=== PATIENT | male | born 1995 | race Caucasian/White ===

== ENCOUNTER 2017-11-14 18:19 | Emergency (ER) | payer OTHER ==
[2017-11-14 18:32] VITALS: BMI 26.6
[2017-11-14] MEDS ORDERED: KETOROLAC TROMETHAMINE 60 MG/2 ML VIAL IM ONE (18:54)
[2017-11-14] MEDS ORDERED: KETOROLAC TROMETHAMINE 60 MG/2 ML VIAL ONE (18:56)
--- NOTE | 2017-11-14 19:04 | PDOC ---
History of Present Illness <Mariam Granados - Last Filed: 11/14/17 20:49> - History of Present Illness Initial Comments: 11/14/17 18:56 22 yo M with h/o L shoulder dislocation x 2, who p/w L shoulder pain s/p fall. Patient reports playing basketball and landing/falling backwards on outstretched hand prior to arrival. Patient reports acute onset L shoulder pain worse with movement. Denies head, neck ,back trauma, or LOC. Denies F/C, N/V, PEARSON, neck stiffness, CP, SOB, abdominal pain, diarrhea, constipation, urinary complaints, weakness, lightheadedness, sensory changes. PMHx: as noted above ROS: as noted above NKDA <Tommy Swann - Last Filed: 11/14/17 23:46> - General Chief Complaint: Shoulder Dislocation Stated Complaint: SHOULDER INJURY Time Seen by Provider: 11/14/17 18:37 Past History <Mariam Granados - Last Filed: 11/14/17 20:49> - Past Medical History COPD: No DVT: No Other medical history: multiple L shoudler dislocations - Immunization History Immunization Up to Date: Yes - Suicide/Smoking/Psychosocial Hx Smoking Status: No Smoking History: Never smoked Have you smoked in the past 12 months: No Number of Cigarettes Smoked Daily: 0 Information on smoking cessation initiated: No Hx Alcohol Use: No Drug/Substance Use Hx: No Substance Use Type: None <Tommy Swann - Last Filed: 11/14/17 23:46> - Past Medical History Allergies/Adverse Reactions: Allergies Allergy/AdvReac Type Severity Reaction Status Date / Time No Known Allergies Allergy Verified 09/25/15 09:02 Home Medications: Ambulatory Orders NK [No Known Home Medication] 11/14/17 Review of Systems - Review of Systems Comments:: 11/14/17 18:56 GENERAL/CONSTITUTIONAL: No fever or chills. No weakness. HEAD, EYES, EARS, NOSE AND THROAT: No change in vision. No ear pain or discharge. No sore throat. CARDIOVASCULAR: No chest pain or shortness of breath RESPIRATORY: No cough, wheezing, or hemoptysis. GASTROINTESTINAL: No nausea, vomiting, diarrhea or constipation. GENITOURINARY: No dysuria, frequency, or change in urination. MUSCULOSKELETAL: L shoulder pain. No joint or muscle swelling. No neck or back pain. SKIN: No rash NEUROLOGIC: No headache, vertigo, loss of consciousness, or change in strength/ sensation. ENDOCRINE: No increased thirst. No abnormal weight change HEMATOLOGIC/LYMPHATIC: No anemia, easy bleeding, or history of blood clots. ALLERGIC/IMMUNOLOGIC: No hives or skin allergy. <Tommy Swann - Last Filed: 11/14/17 23:46> *Physical Exam - Vital Signs Last Vital Signs Temp Pulse Resp BP Pulse Ox 98.2 F 98 H 20 122/88 98 11/14/17 18:23 11/14/17 18:23 11/14/17 18:23 11/14/17 18:23 11/14/17 18:23 <DarwinMariamh - Last Filed: 11/14/17 20:49> - Vital Signs Last Vital Signs Temp Pulse Resp BP Pulse Ox 98.2 F 98 H 20 122/88 98 11/14/17 18:23 11/14/17 18:23 11/14/17 18:23 11/14/17 18:23 11/14/17 18:23 - Physical Exam Comments: 11/14/17 18:56 GENERAL: Awake, alert, and fully oriented, in no acute distress HEAD: No signs of trauma, normocephalic, atraumatic EYES: PERRLA, EOMI, sclera anicteric, conjunctiva clear ENT: Auricles normal inspection, hearing grossly normal, nares patent, oropharynx clear without exudates. Moist mucosa NECK: Normal ROM, supple, no lymphadenopathy, JVD, or masses LUNGS: No distress, speaks full sentences, clear to auscultation bilaterally HEART: Regular rate and rhythm, normal S1 and S2, no murmurs, rubs or gallops, peripheral pulses normal and equal bilaterally. EXTREMITIES : Normal inspection, Normal range of motion, no edema. No clubbing or cyanosis. Left shoulder: Pain with active and passive ROM, particularly abduction, and external rotation. Patient holding arm in internally rotated and flexed positon. No obvious limb length discrepancy,or bony deformity. Palpable and symmetric 2 + Radial pulses. Absent radial head, or scaphoid ttp. NEUROLOGICAL: Cranial nerves II through XII grossly intact. Normal speech, normal gait, no focal sensorimotor deficits SKIN: Warm, Dry, normal turgor, no rashes or lesions noted. <Tommy Swann - Last Filed: 11/14/17 23:46> Procedures - Joint Reduction Left Joint Reduction Site: left: Shoulder Pre-Procedure NV Exam: normal Conscious Sedation: No (5) Anesthesia: Versed Amt. of medication administered: 4mg Procedure: Traction Counter Traction Post-Procedure NV Exam: normal Complications: No Post Joint Reduction Film: joint reduced Splint: Yes Immobilized: Yes <Tommy Swann - Last Filed: 11/14/17 23:46> ED Treatment Course - Medications Given in the ED: ED Medications Discontinued Medications Generic Name Dose Route Start Last Admin Trade Name Freq PRN Reason Stop Dose Admin Ketorolac Tromethamine 60 mg 11/14/17 18:54 11/14/17 19:05 Toradol Injection - IM 11/14/17 18:55 60 mg ONCE ONE Administration <Mariam Granados - Last Filed: 11/14/17 20:49> - RADIOLOGY Radiology Studies Ordered: Category Date Time Status UPPER EXTREMITY CT W/O CONTR [CT] Stat CT Scan 11/14/17 18:53 Ordered SHOULDER-LEFT [RAD] Stat Radiology 11/14/17 18:40 Ordered <Tommy Swann - Last Filed: 11/14/17 23:46> Medical Decision Making - Medical Decision Making 11/14/17 19:04 22 yo M with h/o L shoulder dislocation x 2, who p/w L shoulder pain s/p fall. VSS, AF. BL UE neurovasculalry intact. Mechanism of injury involves fall onto outstretched hand or FOOSH injury. Absent evidence of scaphoid ttp/snuff box injury colles fracture, or scaphoid lunate injury. No evidence of laceration. Will obtain basic radiograph to r/o and pain control. ED Course 60 mg IM toradol. L SHOULDER RAD 11/14/17 22:[address] with post dislocation. Shoulder reduction performed at bedside with 100 mg fentanyl and 50 mg Versed with no complications. Malampati score 1. Patient pain improved. Sling applied to L shoulder. Patient stable for d/c with return precautions. <Tommy Swann - Last Filed: 11/14/17 23:46> *DC/Admit/Observation/Transfer <Mariam Granados - Last Filed: 11/14/17 20:49> <Tommy Swann - Last Filed: 11/14/17 23:46> Diagnosis at time of Disposition: Shoulder dislocation Qualifiers: Encounter type: initial encounter Laterality: left Qualified Code(s): S43.005A - Unspecified dislocation of left shoulder joint, initial encounter - Discharge Dispostion Disposition: HOME Condition at time of disposition: Stable
--- NOTE | 2017-11-14 20:50 | PDOC ---
Attending Attestation - Resident Resident Name: Rodger Swannson - ED Attending Attestation I have performed the following: I have examined & evaluated the patient, The case was reviewed & discussed with the resident, I agree w/resident's findings & plan, Exceptions are as noted - HPI HPI: 11/14/17 20:49 22 yo male p/w L shoulder pain s/p playing basketball - Physicial Exam PE: 11/14/17 20:50 slender 22 yo male p/w left shoulder pain head ncat neck no cervical vertebral tenderness lungs cta b/l cvs [id number] abd flat ,nontender ext there is no obvious deformity of the left shoulder but he has limited range of motion due to pain, good ulnar and radial pulses, sensation is intact neuro axox3,ambulatory skin warm and dry,no erythema - Medical Decision Making 11/14/17 22:55 ct scan of left shoulder revealed posterior dislocation/chronic reverse [place] Sacks deformity SEDATION and REDUCTION of POSTERIOR SHOULDER DISLOCATION /post reduction film obtained 11/15/17 00:18 successful reduction plan-pt to follow up with ortho . This is the 3rd time his shoulder has dislocated
[2017-11-14] MEDS ORDERED: MIDAZOLAM HCL 5 MG/1 ML Single Dose Vial IVPUSH STA ×2 (22:05→22:32)
[2017-11-14] MEDS ORDERED: MIDAZOLAM HCL 2 MG/2 ML SINGLE DOSE VIAL ONE (22:09)
[2017-11-15 00:33] VITALS: BP 111/78; PULSE 70; TEMP 98.4
== END 2017-11-15 00:45 | disposition home or self-care (01) ==
LOC: JER 18:19 → JERBED 21:23 → UNDOADMIN 21:23 → JER 11-15 00:45
PROC: 0RSKXZZ Reposition Left Shoulder Joint, External Approach (ICD-10-PCS; principal; 2017-11-14)
DX: M24.412 Recurrent dislocation, left shoulder (principal); W18.39XA Other fall on same level, initial encounter; Y93.67 Activity, basketball; Y92.310 Basketball court as the place of occurrence of the external cause; Y99.8 Other external cause status
CPT/HCPCS: 23650; 73030-TC-LT-FY; 73200-TC-RT; 99282-25

== ENCOUNTER 2018-09-17 11:05 | Emergency (ER) | payer OTHER ==
[2018-09-17 11:13] VITALS: BP 128/79; PULSE 110; TEMP 98.9; BMI 23.3
[2018-09-17] MEDS ORDERED: SODIUM CHLORIDE 1,000 ML IV STA (11:25)
[2018-09-17] MEDS ORDERED: ONDANSETRON 4 MG/2 ML VIAL IVPB ONE (11:25)
--- NOTE | 2018-09-17 11:28 | PDOC ---
History of Present Illness - General Chief Complaint: Nausea/Vomiting Stated Complaint: VOMMITING Time Seen by Provider: 09/17/18 11:06 History Source: Patient, Family Exam Limitations: No Limitations - History of Present Illness Initial Comments: 09/17/18 11:25 CHIEF COMPLAINT: Nausea and vomiting since 7 AM today HISTORY OF PRESENT ILLNESS: This is a healthy 23-year-old man who presents complaining of diffuse abdominal discomfort with nausea and vomiting since 7 AM. No blood. Patient states he awoke this morning and felt some nausea. He went in the bathroom and vomited. He also had some mild watery diarrhea. He has bandlike pain across the lower abdomen that waxes and wanes, almost goes away but not completely. Currently the pain is mild but he continues to feel nausea. He states he ate [employer] yesterday, nothing that could've been spoiled. He denies prior abdominal surgery. He states he once came to the ER for similar symptoms, but that was 3 or 4 years ago. REVIEW OF SYSTEMS: GENERAL/CONSTITUTIONAL: No fever or chills. No weakness. No weight change. HEAD, EYES, EARS, NOSE AND THROAT: No change in vision. No ear pain or discharge. No sore throat. CARDIOVASCULAR: No chest pain or shortness of breath. RESPIRATORY: No cough, wheezing, or hemoptysis. GASTROINTESTINAL: Positive nausea and vomiting. Positive diarrhea. See history of present illness. No prior abdominal surgery. GENITOURINARY: No dysuria, frequency, or change in urination. MUSCULOSKELETAL: No joint or muscle swelling or pain. No neck or back pain. SKIN AND BREASTS: No rash or easy bruising. NEUROLOGIC: No headache, vertigo, loss of consciousness, or loss of sensation. PSYCHIATRIC: No depression or anxiety. ENDOCRINE: No increased thirst. No abnormal weight change. HEMATOLOGIC/LYMPHATIC: No anemia, easy bleeding, or history of blood clots. ALLERGIC/IMMUNOLOGIC: No hives or skin allergy. No latex allergy. Past History - Past Medical History Allergies/Adverse Reactions: Allergies Allergy/AdvReac Type Severity Reaction Status Date / Time No Known Allergies Allergy Verified 09/17/18 11:06 Home Medications: Ambulatory Orders NK [No Known Home Medication] 11/14/17 Asthma: No COPD: No DVT: No Diabetes: No HTN: No - Immunization History Immunization Up to Date: Yes - Suicide/Smoking/Psychosocial Hx Smoking Status: No Smoking History: Current every day smoker Have you smoked in the past 12 months: Yes Number of Cigarettes Smoked Daily: 0 Information on smoking cessation initiated: Yes Hx Alcohol Use: No Drug/Substance Use Hx: No Substance Use Type: None *Physical Exam - Vital Signs Last Vital Signs Temp Pulse Resp BP Pulse Ox 98.9 F 110 H 20 128/79 100 09/17/18 11:06 09/17/18 11:06 09/17/18 11:06 09/17/18 11:06 09/17/18 11:06 - Physical Exam Comments: 09/17/18 11:28 GENERAL: The patient is awake, alert, and fully oriented, in no acute distress. HEAD: Normal with no signs of trauma. EYES: Pupils equal, round and reactive to light, extraocular movements intact, sclera anicteric, conjunctiva clear. ENT: Ears normal, nares patent, oropharynx clear without exudates. Moist mucous membranes. NECK: Normal range of motion, supple without lymphadenopathy, JVD, or masses. LUNGS: Breath sounds equal, clear to auscultation bilaterally. No wheezes, and no crackles. HEART: Regular rate and rhythm, normal S1 and S2 without murmur, rub or gallop. ABDOMEN: No distention. Soft, nontender, normoactive bowel sounds. No Campbell' s sign. No McBurney's tenderness. No guarding, no rebound. No masses. BACK: No CVA tenderness. EXTREMITIES: Normal range of motion, no edema. No clubbing or cyanosis. No cords, erythema, or tenderness. NEUROLOGICAL: Cranial nerves II through XII grossly intact. Normal speech, normal gait. PSYCH: Normal mood, normal affect. SKIN: Warm, Dry, normal turgor, no rashes or lesions noted. ED Treatment Course - LABORATORY CBC & Chemistry Diagram: 09/17/18 12:01 09/17/18 12:01 Medical Decision Making - Medical Decision Making 09/17/18 15:05 Patient is a 23-year-old man with onset today of nausea and vomiting and some diarrhea. On examination he has a generalized sensation of abdominal discomfort , but there is no focal tenderness in any area. There is no rebound or guarding. Initial impression is probable gastroenteritis, however early appendicitis is also in the differential. Laboratory workup performed revealing significant leukocytosis with increased neutrophils, suggesting more bacterial than viral infection. Based upon this finding, CT scan was performed to rule out diverticulitis or appendicitis. CT scan is notable for diverticulosis without diverticulitis. The appendix is normal. There is diffuse fluid and minimal bowel wall thickening throughout, consistent with enterocolitis. Impression: Enterocolitis, bacterial versus viral, patient will be treated with a course of Augmentin for the possibility of bacterial enterocolitis or mild, early diverticulitis. He is tolerating oral fluids. 09/17/18 15:29 Repeat abdominal examination is benign. Patient tolerated oral antibiotics and fluids without difficulty. He is stable for discharge home. *DC/Admit/Observation/Transfer Diagnosis at time of Disposition: Enterocolitis - Discharge Dispostion Disposition: HOME Condition at time of disposition: Stable Decision to Admit order: No - Referrals - Patient Instructions Printed Discharge Instructions: DI for Vomiting -- Adult Additional Instructions: Today you were evaluated for vomiting and diarrhea. The CT scan shows some inflammation of the small and large intestine. You are being treated with Augmentin antibiotic twice a day to help resolve the infection. Be sure to drink plenty of fluids. Follow-up with your primary care physician. If you have a high fever, worsening abdominal pain, or any other severe or worsening symptoms, return to the emergency department immediately. - Post Discharge Activity
[2018-09-17] MEDS ORDERED: ONDANSETRON 4 MG/2 ML VIAL ONE (11:57)
[2018-09-17 12:33] LABS: HEMOGLOBIN 17.5 GM/dl (11.7-16.9); MCH 29.9 pg (25.7-33.7); MCHC 33.6 g/dl (32.0-35.9); PLATELET COUNT 216 K/MM3 (134-434); RBC 5.84 M/mm3 (4.00-5.60); RDW 11.8 % (11.9-15.9); WHITE BLOOD COUNT 15.2 K/mm3 (4.0-10.8)
[2018-09-17 12:48] LABS: ALBUMIN 3.9 g/dl (3.4-5.0); ALK PHOS 45 U/L (45-117); ANION GAP 5 MMOL/L (8-16); BILIRUBIN,TOTAL 1.3 mg/dl (0.2-1); BLOOD UREA NITROGEN 22 mg/dl (7-18); CALCIUM 8.3 mg/dl (8.5-10); CHLORIDE 105 mmol/L (98-107); CO2 26 mmol/L (21-32); CREATININE 0.9 mg/dl (0.55-1.3); GLUCOSE,RANDOM 105 mg/dl (74-106); POTASSIUM 3.9 mmol/L (3.5-5.1); SGOT/AST 18 U/L (15-37); SGPT/ALT 15 U/L (13-61); SODIUM 136 mmol/L (136-145); TOT PROT 6.3 g/dl (6.4-8.2)
[2018-09-17 13:58] LABS: LIPASE 64 U/L (73-393)
[2018-09-17] MEDS ORDERED: AMOX TR/POT CLAV 875MG/125MG TABLETS (FP) PO ONE (15:04)
[2018-09-17] MEDS ORDERED: AMOX TR/POT CLAV 875MG/125MG TABLETS (FP) ONE (15:04)
== END 2018-09-17 15:43 | disposition home or self-care (01) ==
LOC: FER 11:05
PROC: 3E033GC Introduction of Other Therapeutic Substance into Peripheral Vein, Percutaneous Approach (ICD-10-PCS; principal; 2018-09-17)
PROC: 3E0337Z Introduction of Electrolytic and Water Balance Substance into Peripheral Vein, Percutaneous Approach (ICD-10-PCS; 2018-09-17)
DX: K52.9 Noninfective gastroenteritis and colitis, unspecified (principal); F17.210 Nicotine dependence, cigarettes, uncomplicated
CPT/HCPCS: 36415; 74177-TC; 80053; 83690; 85025; 99283-25; J7030

== ENCOUNTER 2022-06-11 18:29 | Emergency (ER) | payer BC ==
[2022-06-11] MEDS ORDERED: SODIUM CHLORIDE 1,000 ML IV STA (18:40)
[2022-06-11] MEDS ORDERED: ACETAMINOPHEN 1000 MG/100 ML BAG IVPB ONE (18:41)
[2022-06-11] MEDS ORDERED: ONDANSETRON 4 MG/2 ML VIAL IVPB ONE (18:41)
[2022-06-11 18:42] VITALS: BP 150/90; PULSE 98; RESP 16; TEMP 100.5; BMI 25.7
[2022-06-11] MEDS ORDERED: ONDANSETRON 4 MG/2 ML VIAL ONE (18:45)
[2022-06-11] MEDS ORDERED: ACETAMINOPHEN INJECTION 100 ML IVPB ONE (18:45)
[2022-06-11 19:11] LABS: HEMOGLOBIN 16.2 G/dL (11.7-16.9); MCH 30.2 pg (25.7-33.7); MCHC 35.3 g/dl (32.0-35.9); MEAN CELL VOLUME 85.6 fl (80-96); MEAN PLT VOLUME 8.3 fl (7.5-11.1); PLATELET COUNT 188.3 10^3/uL (134-434); RBC 5.37 10^6/uL (4.00-5.60); RDW 13.5 % (11.9-15.9); WHITE BLOOD COUNT 9.1 10^3/uL (4.0-10.8)
[2022-06-11 19:18] LABS: ALBUMIN 4.7 g/dl (3.4-5.0); CALCIUM 8.5 mg/dl (8.5-10); TOT PROT 7.5 g/dl (6.4-8.2)
[2022-06-11 20:40] LABS: PLATELET ESTIMATE ADEQUATE
== END 2022-06-11 21:06 | disposition home or self-care (01) ==
LOC: FER 18:29
PROC: 3E033GC Introduction of Other Therapeutic Substance into Peripheral Vein, Percutaneous Approach (ICD-10-PCS; principal; 2022-06-11)
DX: R51.9 Headache, unspecified (principal); R11.2 Nausea with vomiting, unspecified
CPT/HCPCS: 36415; 70450-TC; 80053; 85027; 99285-25